=== PATIENT | female | born 1970 | race Caucasian/White ===

== ENCOUNTER 2023-01-21 19:56 | Emergency (ER) | payer OTHER ==
[~2023-01-21] VITALS: Ht 162.6 cm; Wt 73.0 kg
[2023-01-21] MEDS ORDERED: ACETAMINOPHEN 325MG TABLET PO ONE (21:00)
[2023-01-21] MEDS ORDERED: IBUPROFEN 600MG TABLET PO ONE (21:00)
[2023-01-21 21:34] VITALS: BP 171/91
== END 2023-01-21 21:50 | disposition home or self-care (01) ==
LOC: ER 19:56
DX: M25.572 Pain in left ankle and joints of left foot (principal)
CPT/HCPCS: 99281